=== PATIENT | male | born 1995 | race Caucasian/White ===

== ENCOUNTER 2017-10-18 07:19 | Emergency (ER) | payer OTHER ==
[2017-10-18 07:30] VITALS: BP 115/70
[2017-10-18] MEDS ORDERED: Tetracaine 0.5% OPTH.SOL 4 ML* 1 DROP BTL RIGHT EYE ONE (07:50)
[2017-10-18] MEDS ORDERED: Tetracaine 0.5% OPTH.SOL 4 ML* 1 DROP BTL ONE (07:52)
[2017-10-18] MEDS ORDERED: Ciprofloxacin 0.3% OPTH.SOL* 2.5 ML BTL RIGHT EYE ONE ×3 (08:02→08:14)
--- NOTE | 2017-10-18 08:08 | ED ---
Throat Pain/Nasal Congestion - HPI Summary HPI Summary: 21yo WM c/o possible retained soft contact since yesterday afternoon in right eye, eye is red, irritated and mildly photophobic due to irritation. Pt feels that either it fell into the sink or may have gone up into the upper lid - History of Current Complaint Chief Complaint: UCEye Time Seen by Provider: 10/18/17 07:46 Hx Obtained From: Patient Hx From Patient Unobtainable Due To: Other Onset/Duration: Sudden Onset Severity: Moderate - Allergies/Home Medications Allergies/Adverse Reactions: Allergies Allergy/AdvReac Type Severity Reaction Status Date / Time cephalexin [From Keflex] Allergy Intermediate Unknown Verified 10/18/17 07:31 Reaction Details PMH/Surg Hx/FS Hx/Imm Hx Previously Healthy: Yes Endocrine/Hematology History: Denies: Hx Anticoagulant Therapy, Hx Diabetes, Hx Thyroid Disease Cardiovascular History: Denies: Hx Hypertension Respiratory History: Denies: Hx Asthma, Hx Chronic Obstructive Pulmonary Disease (COPD) GI History: Denies: Hx Ulcer Psychiatric History: Denies: Hx Eating Disorder, Hx of Violent Episodes Against Others - Surgical History Surgery Procedure, Year, and Place: [facility] Infectious Disease History: No Infectious Disease History: Denies: Hx Hepatitis, Hx Human Immunodeficiency Virus (HIV), Traveled Outside the [place] in Last 30 Days - Family History Family History: No FHx of Self Harm - Social History Alcohol Use: Occasionally Substance Use Type: Reports: None Smoking Status (MU): Light Every Day Tobacco Smoker Review of Systems Constitutional: Negative Eyes: Other - ALL in right eye below: Positive: Photophobia, Blurred Vision, Drainage, Erythema ENT: Negative Cardiovascular: Negative Respiratory: Negative Gastrointestinal: Negative Genitourinary: Negative Musculoskeletal: Negative Skin: Negative All Other Systems Reviewed And Are Negative: Yes Physical Exam Triage Information Reviewed: Yes Vital Signs On Initial Exam: Initial Vitals Temp Pulse Resp BP Pulse Ox 36.7 C 72 18 115/70 98 10/18/17 07:25 10/18/17 07:25 10/18/17 07:25 10/18/17 07:25 10/18/17 07:25 Vital Signs Reviewed: Yes Appearance: Positive: Pain Distress Head/Face: Positive: Normal Head/Face Inspection Eyes: Positive: EOMI, Discharge - clear, Other: - conjunctival injection right eye ENT: Positive: Pharynx normal Neck: Positive: Supple Respiratory/Lung Sounds: Positive: Clear to Auscultation Cardiovascular: Positive: Normal, S1, S2 Musculoskeletal: Positive: Normal Neurological: Positive: Normal Psychiatric: Positive: Normal Diagnostics - Vital Signs Vital Signs Temp Pulse Resp BP Pulse Ox 10/18/17 07:25 36.7 C 72 18 115/70 98 - Laboratory Lab Statement: Any lab studies that have been ordered have been reviewed, and results considered in the medical decision making process. EENT Course/Dx - Course Course Of Treatment: Light exam with everted lid with tetracaine failed to reveal any retained FB on surface of cornea in upper sclera and on everted lid itself. Pt to still follow up with [facility] today to make sure there are no extensive abrasions to cornea during manual irritation since yesterday. Cipro 2 drops in right eye q4 hrs, bottle dispensed to pt - Diagnoses Provider Diagnoses: Corneal irritation of right eye, Acute pain in right eye Discharge - Sign-Out/Discharge Documenting (check all that apply): Discharge/Admit/Transfer - Discharge Plan Condition: Stable Disposition: HOME Patient Education Materials: Eye Pain (ED) Referrals: Cristiano Bocanegra MD [Primary Care Provider] - Additional Instructions: Please follow up with [facility] after leaving today - Billing Disposition and Condition Condition: STABLE Disposition: HOME
== END 2017-10-18 08:25 | disposition home or self-care (01) ==
LOC: UCEAST 07:19
DX: H57.11 Ocular pain, right eye (principal); H18.891 Other specified disorders of cornea, right eye; F17.200 Nicotine dependence, unspecified, uncomplicated; Z88.1 Allergy status to other antibiotic agents
CPT/HCPCS: 99212; A9270-GY; G0463